=== PATIENT | female | born 1990 | race Caucasian/White ===

== ENCOUNTER 2020-06-04 10:54 | Outpatient (CLI) | payer BC ==
[~2020-06-04] VITALS: Ht 162.6 cm; Wt 51.8 kg
[2020-06-04] MEDS ORDERED: LORA10TA7 PO (11:05)
[2020-06-04] MEDS ORDERED: ONDN4T PO (11:05)
[2020-06-07] MEDS ORDERED: HYDR-4226 PO (13:56)
== END 2020-06-04 11:22 | disposition home or self-care (01) ==
LOC: PREOP 10:54
PROVIDERS: ATTEND Surgery
DX: Z01.818 Encounter for other preprocedural examination (principal)

== ENCOUNTER → 2022-03-29 | Outpatient (CLI) | payer BC ==
[~2022-03-29] MED LIST: HYDR-4226 PO; LORA10TA7 PO; ONDN4T PO
--- NOTE | 2022-03-29 14:18 | Diagnostic Imaging Report ---
PROCEDURE: Pelvic comp/transvaginal sonogram. TECHNIQUE: Complete transabdominal and transvaginal pelvic ultrasound was performed. In addition, limited pelvic Doppler was performed. INDICATION: Right ovarian cyst. FINDINGS: The uterus is anteverted measuring 7.8 x 3.8 x 4.5 cm. The endometrium is 4 mm in thickness. No myometrial mass is detected. The right ovary measures 5.4 x 3.2 x 4.7 cm and the left ovary measures 3.5 x 2.8 x 3.1 cm. The right ovary does contain a 5.0 x 2.9 x 4.3 cm cyst which appears to be fairly simple. The left ovary does contain of a more complex, septated cyst measuring 3.0 x 2.3 x 2.7 cm. There is blood flow to both ovaries. No free fluid is seen. IMPRESSION: Bilateral ovarian cysts, complex on the left. Followup in 6-8 weeks is recommended to confirm clearing. Dictated by: Dictated on workstation # [id number]
== END ==
LOC: RAD 12:00
PROVIDERS: ATTEND Surgery
DX: N83.201 Unspecified ovarian cyst, right side (principal); N83.202 Unspecified ovarian cyst, left side
CPT/HCPCS: 76830; 76856

== ENCOUNTER → 2022-06-29 | Outpatient (CLI) | payer BC ==
--- NOTE | 2022-06-29 17:11 | Diagnostic Imaging Report ---
PROCEDURE: US Non-ob pelvis comp/trans. TECHNIQUE: Multiple realtime grayscale images were obtained of the pelvis in various projections endovaginally. Transabdominal imaging was also performed. INDICATION: Followup ovarian cyst. COMPARISON: 03/29/2022. FINDINGS: The uterus is anteverted and measures 6.7 x 3.7 x 6.0 cm. No myometrial mass. The endometrium measures 0.5 cm in thickness. The right ovary measures 4.9 x 3.2 x 5.1 cm. There is an anechoic cystic structure occupying the majority of the right ovary and this measures 4.7 x 3.0 x 4.7 cm. This is slightly decreased in size since prior ultrasound where it measured 5.0 x 2.9 x 4.3 cm. Blood flow is seen within the periphery of the right ovarian tissue. The left ovary measures 2.8 x 1.6 x 1.8 cm. The complex left ovarian cyst has resolved. Blood flow is present in left ovary. A small amount of free pelvic fluid is present. IMPRESSION: 1. The mildly complicated left ovarian cyst has resolved. 2. Persistent right ovarian cyst/follicle measuring just under 5 cm. This may be a recurrent follicle versus persistent benign cyst. Dictated by: Dictated on workstation # [id number]
== END ==
LOC: RAD 11:44
PROVIDERS: ATTEND Surgery
DX: N83.201 Unspecified ovarian cyst, right side (principal)
CPT/HCPCS: 76830; 76856

== ENCOUNTER → 2022-10-31 | Outpatient (CLI) | payer BC ==
--- NOTE | 2022-10-31 14:46 | Diagnostic Imaging Report ---
PROCEDURE: Pelvic comp/transvaginal sonogram. TECHNIQUE: Complete transabdominal and transvaginal pelvic ultrasound was performed. In addition, limited pelvic Doppler was performed. INDICATION: Right ovarian cyst, follow-up. Correlation is made with prior ultrasound from 06/29/2022. Uterus is anteverted measuring 8.9 x 4.4 x 5.4 cm. Endometrium is 6 mm in thickness. No myometrial mass is detected. Right ovary measures 5.0 x 3.8 x 5.1 cm and the left ovary measures 3.1 x 1.6 x 2.2 cm. A right ovarian cyst measures 4.2 x 3.6 x 4.4 cm compared with 4.7 x 3.0 x 4.7 cm on prior. There is blood flow to both ovaries. There is no free fluid identified. IMPRESSION: Right ovarian cyst, slightly smaller when compared with prior examination from June. No new abnormality is detected. Dictated by: Dictated on workstation # [id number]
== END ==
LOC: RAD 10:43
PROVIDERS: ATTEND Surgery
DX: N83.201 Unspecified ovarian cyst, right side (principal)
CPT/HCPCS: 76830; 76856

== ENCOUNTER → 2023-03-23 | Outpatient (CLI) | payer BC ==
--- NOTE | 2023-03-23 16:57 | Diagnostic Imaging Report ---
PROCEDURE: Pelvic complete, transabdominal and transvaginal sonogram. Limited pelvic doppler. TECHNIQUE: Multiple real-time grayscale images were obtained of the pelvis in various projections transabdominally and transvaginally. Limited pelvic duplex images were obtained. HISTORY: RIGHT OVARIAN CYST COMPARISON: 10/31/2022. FINDINGS: Uterus: The uterus is anteverted and measures 8.3 x 4.1 x 5.9 cm. The myometrium is homogeneous without fibroids. Endometrium: The endometrium is normal in thickness and measures 0.3 cm. There is no fluid within the endometrial cavity. Adnexa: The left ovary is nonvisualized secondary to overlying bowel gas. The right ovary measures 4.8 x 3.8 x 4.5 cm. Within the right ovary, there is an anechoic unilocular cyst with suggestion of mild internal debris. This measures 4.1 cm on today's exam (previously 4.2 cm). Other: There is no free fluid within the pelvis. IMPRESSION: 1. Overall stable size of a 4.1 cm left ovarian cyst. Given its persistence across multiple exams, these findings would be suspicious for a mucinous neoplasm such as cystadenoma. Dictated by: Dictated on workstation # [id number]
== END ==
LOC: RAD 15:11
PROVIDERS: ATTEND Surgery
DX: N83.202 Unspecified ovarian cyst, left side (principal); N83.201 Unspecified ovarian cyst, right side
CPT/HCPCS: 76830; 76856

== ENCOUNTER 2023-08-13 09:15 | Emergency (ER) | payer BC ==
[~2023-08-13] VITALS: Ht 162.5 cm; Wt 58.9 kg
[2023-08-13] MEDS ORDERED: fentaNYL INJECTION 100 MCG/2 ML VIAL IVP STA (09:52)
[2023-08-13] MEDS ORDERED: ONDANSETRON INJECTION 4 MG/2 ML (SDV) IVP ONE (10:00)
[2023-08-13] MEDS ORDERED: NS IV 1000 ML 1,000 ML IV SCH (10:00)
--- NOTE | 2023-08-13 10:00 | ED Abdominal Pain ---
General Chief Complaint: Abdominal/GI Problems Stated Complaint: ABD PAIN | HX OF OVARIAN CYSTS Nursing Triage Note: PT AMB TO [facility] 6 WITH COMPLAINT OF RLQ PAIN. STATES PAIN STARTED TODAY. HAS HX OF OVARIAN CYST THAT HAVE BEEN MONITORED FOR A YEAR. STATES SHE ALSO HAD A COLONOSCOPY ON SUNDAY. Source of Information: Patient History of Present Illness Date Seen by Provider: Aug 13, 2023 Time Seen by Provider: 09:46 Initial Comments 32-year-old female presents with right lower quadrant pain. States that started this morning. States she felt fine yesterday with just mild cramping in her right lower quadrant. States she took a test last Sunday and it was negative however did not mention a colonoscopy that she had Sunday. She states she did not have any problems with this to the nurse. Patient states her last menstrual cycle was the of last month and she does get ovarian cyst and this is the appropriate timing for them but today's pain is worse than previous. 1 episode of vomiting secondary to pain no hematemesis no melena hematochezia no abdominal distention. She does have peritoneal signs last meal was last night she states she has had decreased appetite that attributes this to getting over community-acquired pneumonia and bronchitis within the past couple of weeks as well. She is alert and oriented she is very pleasant she is in moderate distress and tearful secondary to pain. No fever. She has involuntary guarding but relaxes on exam otherwise benign. There is some rebound tenderness. Timing/Duration: 4-6 Hours Severity/Quality: Moderate Location: RLQ Radiation: No Radiation Activities at Onset: None Associated Symptoms: Nausea/Vomiting Allergies and Home Medications Allergies Coded Allergies: No Known Drug Allergies (Unverified , 06/04/20) Patient Home Medication List Home Medication List Reviewed: Yes Hydrocodone/Acetaminophen (Hydrocodone/Acetaminophen 5 MG/325 MG TAB) 1 Each Tablet, 1 TAB PO Q6H Prescribed by: TAMMY PAGE on 06/07/20 1356 Hydrocodone/Acetaminophen (Hydrocodone-Acetamin 5-325 mg) 5 Mg-325 Mg Tablet, 1 TAB PO Q6H PRN for PAIN-MODERATE (5-7) Prescribed by: Seth Stallings on 08/13/23 1209 Loratadine (Loratadine) 10 Mg Tablet, 10 MG PO HS, (Reported) Entered as Reported by: BRADLEY CHAPARRO on 06/04/20 1105 Ondansetron (Ondansetron Odt) 4 Mg Tab.rapdis, 4 MG PO Q6H PRN for NAUSEA/VOMITING Prescribed by: Seth Stallings on 08/13/23 1208 Ondansetron HCl (Zofran) 4 Mg Tab, 4 MG PO Q4H PRN for NAUSEA/VOMITING, (Reported) Entered as Reported by: BRADLEY CHAPARRO on 06/04/20 1105 Review of Systems Review of Systems Constitutional: no symptoms reported EENTM: No Symptoms Reported Respiratory: No Symptoms Reported Cardiovascular: No Symptoms Reported Gastrointestinal: See HPI, Abdominal Pain Genitourinary: No Symptoms Reported Musculoskeletal: no symptoms reported Skin: no symptoms reported Psychiatric/Neurological: No Symptoms Reported Endocrine: No Symptoms Reported Hematologic/Lymphatic: No Symptoms Reported All Other Systems Reviewed Negative Unless Noted: Yes Past Tjoripx-Dnfgfu-Bbuyuh Hx Patient Social History Tobacco Use?: Yes Tobacco type used: Cigarettes Smoking Status: Current Everyday Smoker Use of E-Cig and/or Vaping dev: No Substance use?: Yes Substance type: Marijuana Substance frequency: Daily Alcohol Use?: No Pt feels they are or have been: No Seasonal Allergies Seasonal Allergies: Yes Past Medical History Surgeries: Yes (wisdom teeth) Respiratory: No Currently Using CPAP: No Currently Using BIPAP: No Cardiac: No Neurological: No Genitourinary: No Gastrointestinal: Yes Gall Bladder Disease Musculoskeletal: No Endocrine: No HEENT: Yes (glasses, ) Cancer: No Psychosocial: No Integumentary: No Blood Disorders: No Physical Exam Vital Signs Vital Signs - First Documented 08/13/23 09:29 Temp 36.0 Pulse 96 Resp 17 B/P (MAP) 115/78 (90) Pulse Ox 99 O2 Delivery Room Air Capillary Refill : Less Than 3 Seconds Height/Weight/BMI Height: '" Weight: lbs. oz. 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, no motor/sensory deficits, alert, normal mood/affect, oriented x 3 Skin: normal color, warm/dry Progress/Results/Core Measures Results/Orders Lab Results Laboratory Tests Test 08/13/23 09:38 08/13/23 10:20 Range/Units White Blood Count 10.7 4.3-11.0 10^3/uL Red Blood Count 4.85 3.80-5.11 10^6/uL Hemoglobin 14.8 11.5-16.0 g/dL Hematocrit 45 35-52 % Mean Corpuscular Volume 92 80-99 fL Mean Corpuscular Hemoglobin 31 25-34 pg Mean Corpuscular Hemoglobin Concent 33 32-36 g/dL Red Cell Distribution Width 13.3 10.0-14.5 % Platelet Count 301 130-400 10^3/uL Mean Platelet Volume 10.9 9.0-12.2 fL Immature Granulocyte % (Auto) 0 % Neutrophils (%) (Auto) 59 42-75 % Lymphocytes (%) (Auto) 31 12-44 % Monocytes (%) (Auto) 6 0-12 % Eosinophils (%) (Auto) 3 0-10 % Basophils (%) (Auto) 1 0-10 % Neutrophils # (Auto) 6.3 1.8-7.8 10^3/uL Lymphocytes # (Auto) 3.3 1.0-4.0 10^3/uL Monocytes # (Auto) 0.7 0.0-1.0 10^3/uL Eosinophils # (Auto) 0.3 0.0-0.3 10^3/uL Basophils # (Auto) 0.1 0.0-0.1 10^3/uL Immature Granulocyte # (Auto) 0.0 0.0-0.1 10^3/uL Sodium Level 138 135-145 MMOL/L Potassium Level 3.6 3.6-5.0 MMOL/L Chloride Level 104 98-107 MMOL/L Carbon Dioxide Level 23 21-32 MMOL/L Anion Gap 11 5-14 MMOL/L Blood Urea Nitrogen 9 7-18 MG/DL Creatinine 0.80 0.60-1.30 MG/DL Estimat Glomerular Filtration Rate 102 BUN/Creatinine Ratio 11 Glucose Level 101 70-105 MG/DL Calcium Level 9.4 8.5-10.1 MG/DL Corrected Calcium 8.5-10.1 MG/DL Total Bilirubin 0.5 0.1-1.0 MG/DL Aspartate Amino Transf (AST/SGOT) 16 5-34 U/L Alanine Aminotransferase (ALT/SGPT) 18 0-55 U/L Alkaline Phosphatase 73 40-136 U/L Total Protein 8.1 6.4-8.2 GM/DL Albumin 4.7 H 3.2-4.5 GM/DL Urine Color YELLOW Urine Clarity CLOUDY H Urine pH >=9.0 5-9 Urine Specific Horace 1.015 L 1.016-1.022 Urine Protein 2+ H NEGATIVE Urine Glucose (UA) NEGATIVE NEGATIVE Urine Ketones NEGATIVE NEGATIVE Urine Nitrite NEGATIVE NEGATIVE Urine Bilirubin NEGATIVE NEGATIVE Urine Urobilinogen 0.2 < = 1.0 MG/DL Urine Leukocyte Esterase NEGATIVE NEGATIVE Urine RBC (Auto) NEGATIVE NEGATIVE Urine RBC NONE /HPF Urine WBC NONE /HPF Urine Squamous Epithelial Cells 5-10 /HPF Urine Crystals PRESENT H /LPF Urine Amorphous Sediment LARGE BAO PHOSPHATE H /LPF Urine Bacteria MODERATE H /HPF Urine Casts NONE /LPF Urine Mucus NEGATIVE /LPF Urine Culture Indicated NO Urine Test NEGATIVE NEGATIVE My Orders Orders - SETH STALLINGS W DO Comprehensive Metabolic Panel (08/13/23 09:52) Ua Culture If Indicated (08/13/23 09:52) Ed Iv/Invasive Line Start (08/13/23 09:52) Cbc And Automated Diff (08/13/23 09:52) Fentanyl Injection (Fentanyl Injection (08/13/23 09:52) Ondansetron Injection (Ondansetron Inj (08/13/23 10:00) Us Non Ob Pelvis Comp/Transvag (08/13/23 09:52) Ns Iv 1000 Ml (Ns Iv 1000 Ml) (08/13/23 10:00) Hcg,Qualitative Urine (08/13/23 11:08) Ct Abd/Pelv W (Appendicitis) (08/13/23 11:22) Iohexol Injection (Omnipaque 350 Mg/Ml 1 (08/13/23 11:30) Received Contrast (Hold Metformin- Contr (08/13/23 11:30) Ns (Ivpb) 100 Ml (Sodium Chloride 0.9% 1 (08/13/23 11:30) Iv Push Cold Rolling Coordinator Ed (08/13/23 ) Medications Given in ED Vital Signs/I&O 08/13/23 08/13/23 09:29 12:31 Temp 36.0 Pulse 96 Resp 17 B/P (MAP) 115/78 (90) 105/61 Pulse Ox 99 O2 Delivery Room Air Blood Pressure Mean: 90 Progress Progress Note : Time: 09:55 Progress Note 9-year-old female with a history of ovarian cyst presents with right lower quadrant pain that started this morning. She states she had some discomfort yesterday and mention to a friend at work that she felt like she had. Cramps which was strange because her last menstrual cycle was 2 weeks ago. She states this is on par for when she gets ovarian cyst but states this pain is worse than what she has experienced in the past. She did have an episode of nausea secondary to onset of pain this morning. She does have peritoneal signs she has had decreased appetite but states she was recently getting over walking pneumonia or bronchitis and has not regained her full appetite yet but the last time she ate anything today was last night which is abnormal for her as well. Denies chance of states she took a test on Sunday and it was negative and she has not had intercourse since then. No vaginal bleeding or complaints no diarrhea constipation or bloody stools. She is quite tender in the right lower quadrant I am concerned not only for ovarian cyst rupture but ovarian torsion, ectopic or appendicitis that she still has her appendix as well. Discussed plan to obtain basic lab work perform ultrasound to evaluate for torsion and if ultrasound negative for ruptured cyst or ovarian torsion or other pathology will proceed with CAT scan. Patient agrees with this plan. Will administer fentanyl and Zofran and fluids. UA shows moderate bacteria but no leukocytes. Ultrasound shows ovarian cyst but no free fluid. We will proceed with CT of the abdomen secondary to significant discomfort and significant discomfort CT abdomen negative for acute surgical pathology pelvic cyst noted. No free fluid. Will place on pain medication advise close follow-up with primary care return for problems or concerns. Diagnostic Imaging Diagonstic Imaging: CT, Ultrasound Plain Films/CT/US/NM/MRI: abdomen Comments US FINDINGS: Uterus measures 10.8 x 4.0 x 5.0 cm without evidence of discrete mass. Parametrial vessels are prominent which can be seen with pelvic venous congestion. Endometrial thickness is 0.5 cm. There is blood flow to the ovaries bilaterally. Left ovary contains multiple typical follicles. There is a dominant 5 cm cystic structure in the right ovary. Similar finding was present in the left ovary on the prior exam. There is no significant pelvic free fluid. IMPRESSION: Dominant right ovarian cyst without evidence of torsion. This may contribute to patient's symptoms. Short-term follow-up study could be performed after passage of several menstrual cycles to document resolution. CT No prior studies are available for comparison. FINDINGS: Lung bases are clear. The liver is unremarkable. Gallbladder is surgically absent. Pancreas and spleen are unremarkable. No adrenal mass is identified. Kidneys are unremarkable. Aorta is nonaneurysmal. The bowel loops are normal caliber. There is no obstruction. Appendix is visualized in the right lower quadrant and appears unremarkable. No free fluid is identified. Uterus and bladder are unremarkable. There is a cystic lesion in the deep right pelvis measuring 4.3 cm, described on prior ultrasound reports. No other abnormalities are detected. IMPRESSION: 1. No CT evidence of acute appendicitis. 2. Right-sided pelvic cyst. Reviewed: Reviewed/Discussed Departure Impression Primary Impression: Abdominal pain Qualified Codes: R10.31 - Right lower quadrant pain Additional Impression: Ovarian cyst Qualified Codes: N83.201 - Unspecified ovarian cyst, right side Disposition: HOME, SELF-CARE Condition: Improved Departure-Patient Inst. Referrals: TOMI WOMACK (PCP/Family) Primary Care Physician Patient Instructions: Ovarian Cyst (DC) Add. Discharge Instructions: You have a large ovarian cyst causing her discomfort. No evidence of acute appendicitis today however if symptoms persist or worsen please return to the emergency department for reevaluation as this still could be early appendicitis. Take pain medication as directed please take with MiraLAX or other stool softener as this may cause constipation. We will also provide nausea medi cation. Follow-up with primary care this week. Drink plenty of water. All discharge instructions reviewed with patient and/or family. Voiced understanding. Scripts Ondansetron (Ondansetron Odt) 4 Mg Tab.rapdis 4 MG PO Q6H PRN for NAUSEA/VOMITING, #20 TAB 0 Refills Prov: SETH STALLINGS DO 08/13/23 Hydrocodone/Acetaminophen (Hydrocodone-Acetamin 5-325 mg) 5 Mg-325 Mg Tablet 1 TAB PO Q6H PRN for PAIN-MODERATE (5-7) for 3 Days, #12 TAB 0 Refills Prov: SETH STALLINGS DO 08/13/23 SETH STALLINGS DO Aug 13, 2023 10:00
[2023-08-13 10:05] LABS: ALBUMIN 4.7 GM/DL (3.2-4.5); BASOPHILS # (AUTO) 0.1 10^3/uL (0.0-0.1); BASOPHILS % (AUTO) 1 % (0-10); EOSINOPHILS # (AUTO) 0.3 10^3/uL (0.0-0.3); EOSINOPHILS % (AUTO) 3 % (0-10); HEMATOCRIT 45 % (35-52); HEMOGLOBIN 14.8 g/dL (11.5-16.0); LYMPHOCYTES # (AUTO) 3.3 10^3/uL (1.0-4.0); LYMPHOCYTES % (AUTO) 31 % (12-44); MEAN CORPUSCULAR HEMOGLOBIN 31 pg (25-34); MEAN CORPUSCULAR HGB CONC 33 g/dL (32-36); MEAN CORPUSCULAR VOLUME 92 fL (80-99); MEAN PLATELET VOLUME 10.9 fL (9.0-12.2); MONOCYTES # (AUTO) 0.7 10^3/uL (0.0-1.0); MONOCYTES % (AUTO) 6 % (0-12); NEUTROPHILS # (AUTO) 6.3 10^3/uL (1.8-7.8); NEUTROPHILS % (AUTO) 59 % (42-75); PLATELET COUNT 301 10^3/uL (130-400); WHITE BLOOD COUNT 10.7 10^3/uL (4.3-11.0)
[2023-08-13 10:06] LABS: CHLORIDE 104 MMOL/L (98-107); POTASSIUM 3.6 MMOL/L (3.6-5.0); SODIUM 138 MMOL/L (135-145)
[2023-08-13 10:07] LABS: CALCIUM 9.4 MG/DL (8.5-10.1)
[2023-08-13 10:08] LABS: GLUCOSE 101 MG/DL (70-105); TOTAL PROTEIN 8.1 GM/DL (6.4-8.2)
[2023-08-13 10:09] LABS: CARBON DIOXIDE 23 MMOL/L (21-32)
[2023-08-13 10:10] LABS: BILIRUBIN,TOTAL 0.5 MG/DL (0.1-1.0)
[2023-08-13 10:11] LABS: ALKALINE PHOSPHATASE 73 U/L (40-136)
[2023-08-13 10:12] LABS: GFR ESTIMATED 102
[2023-08-13 10:13] LABS: BUN/CREATININE RATIO 11
[2023-08-13 10:14] LABS: ALANINE AMINOTRANSFERASE 18 U/L (0-55)
[2023-08-13 10:38] LABS: BILIRUBIN,URINE NEGATIVE (NEGATIVE); CLARITY,URINE CLOUDY; COLOR,URINE YELLOW; GLUCOSE, URINE (UA) NEGATIVE (NEGATIVE); KETONES,URINE NEGATIVE (NEGATIVE); NITRITE,URINE NEGATIVE (NEGATIVE); PH,URINE >=9.0 (5-9); PROTEIN,URINE 2+ (NEGATIVE)
[2023-08-13 10:39] LABS: AMORPHOUS SEDIMENT,UR LARGE AMOR PHOSPHATE /LPF; BACTERIA,URINE MODERATE /HPF; LEUKOCYTE ESTERASE ,URINE NEGATIVE (NEGATIVE)
--- NOTE | 2023-08-13 11:17 | Diagnostic Imaging Report ---
PROCEDURE: US Non-ob pelvis comp/trans. TECHNIQUE: Multiple realtime grayscale images were obtained of the pelvis in various projections endovaginally. Transabdominal imaging was also performed. INDICATION: Right lower quadrant abdominal pain. COMPARISON: 03/23/2023. FINDINGS: Uterus measures 10.8 x 4.0 x 5.0 cm without evidence of discrete mass. Parametrial vessels are prominent which can be seen with pelvic venous congestion. Endometrial thickness is 0.5 cm. There is blood flow to the ovaries bilaterally. Left ovary contains multiple typical follicles. There is a dominant 5 cm cystic structure in the right ovary. Similar finding was present in the left ovary on the prior exam. There is no significant pelvic free fluid. IMPRESSION: Dominant right ovarian cyst without evidence of torsion. This may contribute to patient's symptoms. Short-term follow-up study could be performed after passage of several menstrual cycles to document resolution. Dictated by: Dictated on workstation # [id number]
[2023-08-13] MEDS ORDERED: HOLD METFORMIN - RECEIVED CONTRAST 20 ML VIAL IV SCH (11:30)
[2023-08-13] MEDS ORDERED: NS 100 ML (IVPB) BAG IV ONE (11:30)
[2023-08-13] MEDS ORDERED: IOHEXOL 350 MG/ML 100 ML (OMNIPAQUE 350) VIAL IV ONE (11:30)
--- NOTE | 2023-08-13 12:00 | Diagnostic Imaging Report ---
PROCEDURE: CT abdomen and pelvis with contrast, rule out appendicitis. TECHNIQUE: Multiple contiguous axial images were obtained through the abdomen and pelvis after the administration of intravenous contrast. All CT scans use one or more of the following dose optimizing techniques: automated exposure control, MA and/or KvP adjustment based on patient size and exam type or iterative reconstruction. INDICATION: Right lower quadrant pain. No prior studies are available for comparison. FINDINGS: Lung bases are clear. The liver is unremarkable. Gallbladder is surgically absent. Pancreas and spleen are unremarkable. No adrenal mass is identified. Kidneys are unremarkable. Aorta is nonaneurysmal. The bowel loops are normal caliber. There is no obstruction. Appendix is visualized in the right lower quadrant and appears unremarkable. No free fluid is identified. Uterus and bladder are unremarkable. There is a cystic lesion in the deep right pelvis measuring 4.3 cm, described on prior ultrasound reports. No other abnormalities are detected. IMPRESSION: 1. No CT evidence of acute appendicitis. 2. Right-sided pelvic cyst. Dictated by: Dictated on workstation # [id number]
[2023-08-13] MEDS ORDERED: ACHD5005 PO (12:08)
[2023-08-13] MEDS ORDERED: ONDA4TAB11 PO (12:08)
[2023-08-13 12:31] VITALS: BP 105/61
== END 2023-08-13 12:31 | disposition home or self-care (01) ==
LOC: EDUNIT# 09:15 → ER 09:17
DX: N83.201 Unspecified ovarian cyst, right side (principal); R11.10 Vomiting, unspecified; F17.210 Nicotine dependence, cigarettes, uncomplicated
CPT/HCPCS: 36415; 74177; 76830; 76856; 80053; 81000; 84703; 85025; 96361; 96374; 96375

== ENCOUNTER 2023-08-17 13:27 | Emergency (ER) | payer BC ==
[~2023-08-17 13:27] MED LIST changes: +ACHD5005 PO; +ONDA4TAB11 PO
[2023-08-17] MEDS ORDERED: ONDANSETRON INJECTION 4 MG/2 ML (SDV) IVP ONE (13:45)
[2023-08-17] MEDS ORDERED: LACTATED RINGERS 1,000 ML 1,000 ML IV ONE ×2 (13:45→15:15)
[2023-08-17] MEDS ORDERED: DroPERidol INJECTION 5 MG/2 ML (ED ONLY!) IV ONE (13:45)
[2023-08-17] MEDS ORDERED: PANTOPRAZOLE INJECTION 40 MG VIAL IV ONE (13:45)
[2023-08-17 13:53] LABS: BASOPHILS # (AUTO) 0.1 10^3/uL (0.0-0.1); BASOPHILS % (AUTO) 0 % (0-10); EOSINOPHILS % (AUTO) 0 % (0-10); HEMATOCRIT 45 % (35-52); HEMOGLOBIN 15.1 g/dL (11.5-16.0); LYMPHOCYTES # (AUTO) 2.1 10^3/uL (1.0-4.0); LYMPHOCYTES % (AUTO) 11 % (12-44); MEAN CORPUSCULAR HEMOGLOBIN 30 pg (25-34); MEAN CORPUSCULAR HGB CONC 33 g/dL (32-36); MEAN CORPUSCULAR VOLUME 91 fL (80-99); MEAN PLATELET VOLUME 11.3 fL (9.0-12.2); MONOCYTES # (AUTO) 0.9 10^3/uL (0.0-1.0); MONOCYTES % (AUTO) 5 % (0-12); NEUTROPHILS # (AUTO) 16.5 10^3/uL (1.8-7.8); NEUTROPHILS % (AUTO) 84 % (42-75); PLATELET COUNT 273 10^3/uL (130-400); WHITE BLOOD COUNT 19.7 10^3/uL (4.3-11.0)
[2023-08-17 14:13] LABS: ALANINE AMINOTRANSFERASE 21 U/L (0-55); ALKALINE PHOSPHATASE 76 U/L (40-136); BAND NEUTROPHILS 1 %; BILIRUBIN,TOTAL 1.1 MG/DL (0.1-1.0); BUN/CREATININE RATIO 14; CALCIUM 10.4 MG/DL (8.5-10.1); CARBON DIOXIDE 21 MMOL/L (21-32); CHLORIDE 105 MMOL/L (98-107); CREATININE SERUM 0.98 MG/DL (0.60-1.30); GFR ESTIMATED 80; GLUCOSE 147 MG/DL (70-105); LIPASE 6 U/L (8-78); LYMPHOCYTES % (MANUAL) 9 %; MONOCYTES % (MANUAL) 2 %; NEUTROPHILS % (MANUAL) 88 %; POTASSIUM 3.9 MMOL/L (3.6-5.0); RBC MORPH NORMAL; SODIUM 142 MMOL/L (135-145); TOTAL PROTEIN 8.5 GM/DL (6.4-8.2)
--- NOTE | 2023-08-17 14:14 | ED GI ---
General Chief Complaint: Abdominal/GI Problems Stated Complaint: HX OF OVARIAN CYSTS | NAUSEA | VOMITING Nursing Triage Note: PT TO RM 7 PT HYPERVENTILATING. PT VOMTING AND HAS DRY HEAVING, PT HAS HX OF IBS AND STATES MAYBE FEELS LIKE THIS. PT STATES HAS TAKEN SOME ZOFRAN THIS AM Source of Information: Patient Exam Limitations: No Limitations History of Present Illness Date Seen by Provider: Aug 17, 2023 Time Seen by Provider: 13:38 Allergies and Home Medications Allergies Coded Allergies: No Known Drug Allergies (Unverified , 06/04/20) Patient Home Medication List Home Medication List Reviewed: Yes Hydrocodone/Acetaminophen (Hydrocodone/Acetaminophen 5 MG/325 MG TAB) 1 Each Tablet, 1 TAB PO Q6H Prescribed by: TAMMY PAGE on 06/07/20 1356 Hydrocodone/Acetaminophen (Hydrocodone-Acetamin 5-325 mg) 5 Mg-325 Mg Tablet, 1 TAB PO Q6H PRN for PAIN-MODERATE (5-7) Prescribed by: Emilie Stallings on 08/13/23 1209 Loratadine (Loratadine) 10 Mg Tablet, 10 MG PO HS, (Reported) Entered as Reported by: BRADLEY CHAPARRO on 06/04/20 1105 Ondansetron (Ondansetron Odt) 4 Mg Tab.rapdis, 4 MG PO Q6H PRN for NAUSEA/VOMITING Prescribed by: Emilie Stallnigs on 08/13/23 1208 Ondansetron HCl (Zofran) 4 Mg Tab, 4 MG PO Q4H PRN for NAUSEA/VOMITING, (Reported) Entered as Reported by: BRADLEY CHAPARRO on 06/04/20 1105 Promethazine HCl (Promethazine Tablet) 25 Mg Tablet, 25 MG PO Q6H PRN for NAUSEA/VOMITING-2ND LINE Prescribed by: RAAD MCCAIN on 08/17/23 1542 Past Robzbfx-Pgvmcz-Sflktd Hx Patient Social History Tobacco Use?: Yes Tobacco type used: Cigarettes Smoking Status: Current Everyday Smoker Substance use?: Yes Substance type: Marijuana Substance frequency: Daily Alcohol Use?: No Pt feels they are or have been: No Immunizations Up To Date Influenza Vaccine Up-to-Date: No; Not Current First/Initial COVID19 Vaccinat: YES Second COVID19 Vaccination Espinoza: YES Seasonal Allergies Seasonal Allergies: Yes Past Medical History Surgery/Hospitalization HX: IBS, HX OVARIAN CYCST, GB, Surgeries: Yes (wisdom teeth) Respiratory: No Currently Using CPAP: No Currently Using BIPAP: No Cardiac: No Neurological: No Last Menstrual Period: Jul 27, 2023 Genitourinary: No Gastrointestinal: Yes Gall Bladder Disease Musculoskeletal: No Endocrine: No HEENT: Yes (glasses, ) Cancer: No Psychosocial: No Integumentary: No Blood Disorders: No Physical Exam Vital Signs Vital Signs - First Documented 08/17/23 13:35 Temp 37.3 Pulse 77 Resp 28 B/P (MAP) 93/68 (76) Pulse Ox 98 Capillary Refill : Less Than 3 Seconds Height/Weight/BMI Height: '" Weight: lbs. oz. kg; 22.00 BMI Method: Progress/Results/Core Measures Results/Orders Lab Results Laboratory Tests Test 08/17/23 13:35 08/17/23 15:45 Range/Units White Blood Count 19.7 H 4.3-11.0 10^3/uL Red Blood Count 5.00 3.80-5.11 10^6/uL Hemoglobin 15.1 11.5-16.0 g/dL Hematocrit 45 35-52 % Mean Corpuscular Volume 91 80-99 fL Mean Corpuscular Hemoglobin 30 25-34 pg Mean Corpuscular Hemoglobin Concent 33 32-36 g/dL Red Cell Distribution Width 13.0 10.0-14.5 % Platelet Count 273 130-400 10^3/uL Mean Platelet Volume 11.3 9.0-12.2 fL Immature Granulocyte % (Auto) 1 % Neutrophils (%) (Auto) 84 H 42-75 % Lymphocytes (%) (Auto) 11 L 12-44 % Monocytes (%) (Auto) 5 0-12 % Eosinophils (%) (Auto) 0 0-10 % Basophils (%) (Auto) 0 0-10 % Neutrophils # (Auto) 16.5 H 1.8-7.8 10^3/uL Lymphocytes # (Auto) 2.1 1.0-4.0 10^3/uL Monocytes # (Auto) 0.9 0.0-1.0 10^3/uL Eosinophils # (Auto) 0.0 0.0-0.3 10^3/uL Basophils # (Auto) 0.1 0.0-0.1 10^3/uL Immature Granulocyte # (Auto) 0.1 0.0-0.1 10^3/uL Neutrophils % (Manual) 88 % Lymphocytes % (Manual) 9 % Monocytes % (Manual) 2 % Band Neutrophils 1 % Blood Morphology Comment NORMAL Sodium Level 142 135-145 MMOL/L Potassium Level 3.9 3.6-5.0 MMOL/L Chloride Level 105 98-107 MMOL/L Carbon Dioxide Level 21 21-32 MMOL/L Anion Gap 16 H 5-14 MMOL/L Blood Urea Nitrogen 14 7-18 MG/DL Creatinine 0.98 0.60-1.30 MG/DL Estimat Glomerular Filtration Rate 80 BUN/Creatinine Ratio 14 Glucose Level 147 H 70-105 MG/DL Calcium Level 10.4 H 8.5-10.1 MG/DL Corrected Calcium 8.5-10.1 MG/DL Total Bilirubin 1.1 H 0.1-1.0 MG/DL Aspartate Amino Transf (AST/SGOT) 21 5-34 U/L Alanine Aminotransferase (ALT/SGPT) 21 0-55 U/L Alkaline Phosphatase 76 40-136 U/L C-Reactive Protein High Sensitivity 0.09 0.00-0.50 MG/DL Total Protein 8.5 H 6.4-8.2 GM/DL Albumin 5.0 H 3.2-4.5 GM/DL Lipase 6 L 8-78 U/L Serum Test, Qualitative NEGATIVE NEGATIVE Urine Color YELLOW Urine Clarity SL CLOUDY Urine pH >=9.0 5-9 Urine Specific [place] 1.015 L 1.016-1.022 Urine Protein 2+ H NEGATIVE Urine Glucose (UA) NEGATIVE NEGATIVE Urine Ketones 3+ H NEGATIVE Urine Nitrite NEGATIVE NEGATIVE Urine Bilirubin 1+ H NEGATIVE Urine Urobilinogen 0.2 < = 1.0 MG/DL Urine Leukocyte Esterase NEGATIVE NEGATIVE Urine RBC (Auto) NEGATIVE NEGATIVE Urine RBC NONE /HPF Urine WBC NONE /HPF Urine Squamous Epithelial Cells 0-2 /HPF Urine Crystals NONE /LPF Urine Bacteria NEGATIVE /HPF Urine Casts NONE /LPF Urine Mucus SMALL H /LPF Urine Culture Indicated NO My Orders Orders - RAAD HOPE MD Cbc And Automated Diff (08/17/23 13:43) Comprehensive Metabolic Panel (08/17/23 13:43) Hcg,Qualitative Serum (08/17/23 13:43) Lipase (08/17/23 13:43) Ua Culture If Indicated (08/17/23 13:43) Ed Iv/Invasive Line Start (08/17/23 13:43) Lactated Ringers 1,000 Ml (Lactated Ring (08/17/23 13:45) Ondansetron Injection (Ondansetron Inj (08/17/23 13:45) Pantoprazole Injection (Pantoprazole Inj (08/17/23 13:45) Ekg Tracing (08/17/23 13:45) Droperidol Injection (Ed Only) (Droperid (08/17/23 13:45) Manual Differential (08/17/23 13:35) Hs C Reactive Protein (08/17/23 14:15) Scopolamine Patch (Scopolamine Patch) (08/17/23 14:30) Hyoscyamine Tablet (Hyoscyamine Tablet) (08/17/23 14:30) Fentanyl Injection (Fentanyl Injection (08/17/23 14:30) Lactated Ringers 1,000 Ml (Lactated Ring (08/17/23 15:15) Medications Given in ED Current Medications Medications Dose Ordered Sig/Demar Route Start Time Stop Time Status Last Admin Dose Admin Droperidol 2.5 mg ONCE ONCE IV 08/17/23 13:45 08/17/23 13:47 DC 08/17/23 14:10 2.5 MG Fentanyl Citrate 50 mcg ONCE ONCE IVP 08/17/23 14:30 08/17/23 14:31 DC 08/17/23 14:31 50 MCG Hyoscyamine Sulfate 0.25 mg ONCE ONCE SL 08/17/23 14:30 08/17/23 14:31 DC 08/17/23 14:31 0.25 MG Lactated Ringer's 1,000 ml @ 0 mls/hr Q0M ONCE IV 08/17/23 13:45 08/17/23 13:46 DC 08/17/23 13:50 1,000 MLS/HR Lactated Ringer's 1,000 ml @ 0 mls/hr Q0M ONCE IV 08/17/23 15:15 08/17/23 15:16 DC 08/17/23 15:18 1,000 MLS/HR Ondansetron HCl 4 mg ONCE ONCE IVP 08/17/23 13:45 08/17/23 13:46 DC 08/17/23 13:50 4 MG Pantoprazole 40 mg ONCE ONCE IV 08/17/23 13:45 08/17/23 13:46 DC 08/17/23 13:50 40 MG Scopolamine 1.5 mg ONCE ONCE TD 08/17/23 14:30 08/17/23 14:31 DC 08/17/23 14:31 1.5 MG Vital Signs/I&O 08/17/23 08/17/23 13:35 16:02 Temp 37.3 Pulse 77 74 Resp 28 16 B/P (MAP) 93/68 (76) 100/47 Pulse Ox 98 98 Blood Pressure Mean: 76 Initial ECG Impression Date: Aug 17, 2023 Initial ECG Impression Time: 13:54 Initial ECG Rate: 60 Initial ECG Rhythm: Normal Sinus Initial ECG Intervals: Normal Initial ECG Impression: Nonspecific Changes Comment Normal sinus rhythm with no ST elevation or depression. No abnormal intervals or axis deviation. Departure Impression Primary Impression: Nausea vomiting and diarrhea Additional Impressions: Generalized abdominal pain Ovarian cyst Qualified Codes: N83.201 - Unspecified ovarian cyst, right side Disposition: 01 HOME, SELF-CARE Condition: Improved Departure-Patient Inst. Decision time for Depature: 15:38 Referrals: TOMI WOMACK (PCP/Family) Primary Care Physician Patient Instructions: Abdominal Pain, Adult ED, Cannabis hyperemesis syndrome Add. Discharge Instructions: Start with a noncarbonated clear liquid diet for the rest of today. Tomorrow, gradually advance your diet with small quantities of bland food as tolerated. Avoid dairy, fatty, or greasy foods until your diarrhea has been resolved for at least 48 hours. Use the Zofran (ondansetron) as previously prescribed for primary control of na usea and vomiting. Add Phenergan (promethazine) as prescribed for additional treatment of nausea and vomiting if needed. Phenergan may cause drowsiness, so use with caution. Discontinue use of marijuana and other THC products. They may trigger cannabis hyperemesis syndrome with severe nausea, vomiting, diarrhea, and abdominal pain. You may use antiacid medications such as Pepcid (famotidine) or omeprazole to help with heartburn or upper stomach discomfort. You may also use Tums or generic equivalent to help with this problem. You may use Tylenol (acetaminophen) up to 1000 mg every 6 hours as needed for pain, but avoid NSAID medications such as naproxen and ibuprofen as they may worsen stomach irritation. Return to care in the ER if you have worsening symptoms despite following these instructions. All discharge instructions reviewed with patient and/or family. Voiced unders tanding. Scripts Promethazine HCl (Promethazine Tablet) 25 Mg Tablet 25 MG PO Q6H PRN for NAUSEA/VOMITING-2ND LINE, #10 TAB Prov: RAAD HOPE MD 08/17/23 RAAD HOPE MD Aug 17, 2023 14:14
[2023-08-17] MEDS ORDERED: HYOSCYAMINE 0.125 MG TABLET SL ONE (14:30)
[2023-08-17] MEDS ORDERED: SCOPOLAMINE 1.5 MG PATCH TD ONE (14:30)
[2023-08-17] MEDS ORDERED: fentaNYL INJECTION 100 MCG/2 ML VIAL IVP ONE (14:30)
[2023-08-17] MEDS ORDERED: PROM25TA14 PO (15:42)
[2023-08-17 16:02] VITALS: BP 100/47
[2023-08-17 16:09] LABS: CLARITY,URINE SL CLOUDY; COLOR,URINE YELLOW; GLUCOSE, URINE (UA) NEGATIVE (NEGATIVE); PH,URINE >=9.0 (5-9); PROTEIN,URINE 2+ (NEGATIVE)
[2023-08-17 16:10] LABS: BACTERIA,URINE NEGATIVE /HPF; BILIRUBIN,URINE 1+ (NEGATIVE); KETONES,URINE 3+ (NEGATIVE); LEUKOCYTE ESTERASE ,URINE NEGATIVE (NEGATIVE); NITRITE,URINE NEGATIVE (NEGATIVE); SQUAMOUS EPITHELIAL CELL,UR 0-2 /HPF
== END 2023-08-17 16:03 | disposition home or self-care (01) ==
LOC: EDUNIT# 13:27 → ER 13:28
DX: N83.201 Unspecified ovarian cyst, right side (principal); R11.2 Nausea with vomiting, unspecified; R19.7 Diarrhea, unspecified; F17.210 Nicotine dependence, cigarettes, uncomplicated
CPT/HCPCS: 36415; 80053; 81000; 83690; 84703; 85007; 85027; 86141; 93005; 96361; 96374; 96375